=== PATIENT | male | born 1985 | race Caucasian/White ===

== ENCOUNTER 2022-12-26 14:34 | Emergency (ER) | payer SELFPAY ==
[~2022-12-26] VITALS: Ht 157.5 cm; Wt 72.7 kg
[2022-12-26 14:44] VITALS: BP 140/75; O2SAT 100
[2022-12-26] MEDS ORDERED: TETANUS, DIPHTHERIA, PERTUSSIS VAC/PF 0.5ML (>10YR OLD) IM ONE (15:00)
[2022-12-26] MEDS ORDERED: CEFAZOLIN 1000MG PREMIX 50 ML IV ONE (16:15)
[2022-12-26] MEDS ORDERED: KETOROLAC 30MG/ML VIAL IM ONE (17:00)
[2022-12-26] MEDS ORDERED: LIDOCAINE HCL 1% 20ML VIAL (Pyxis) INJ INFIL ONE ×2 (17:30)
[2022-12-26] MEDS ORDERED: TRANEXAMIC ACID 1,000 MG/10 ML TP ONE (18:15)
[2022-12-26] MEDS ORDERED: IBUP-2030 MT (18:43)
[2022-12-26] MEDS ORDERED: AMOX1TAB16 MT (18:43)
[2022-12-26 19:58] VITALS: PULSE 50; RESP 18; TEMP 98
== END 2022-12-26 20:00 | disposition home or self-care (01) ==
LOC: ER 14:34
DX: S61.211A Laceration without foreign body of left index finger without damage to nail, initial encounter (principal); X58.XXXA Exposure to other specified factors, initial encounter; Y93.89 Activity, other specified; Y92.89 Other specified places as the place of occurrence of the external cause; Y99.8 Other external cause status
CPT/HCPCS: 73140; 90715; 90471; 96365; 96372; 99284; J0690; J1885; Z7610 ×2